=== PATIENT | male | born 1975 | race Hispanic/Latino ===

== ENCOUNTER 2017-03-07 18:10 | Emergency (ER) | payer SELFPAY ==
[2017-03-07 18:17] VITALS: RESP 18; TEMP 97.3; O2SAT 100
--- NOTE | 2017-03-07 19:21 | ED PDOC ---
HPI: Psych/Substance Abuse Time Seen by Provider: 03/07/17 18:28 Chief Complaint (Nursing): Alcohol Ingestion Chief Complaint (Provider): Alcohol Ingestion History Per: Patient History/Exam Limitations: no limitations Current Symptoms Are (Timing): Still Present Additional Complaint(s): 41 year old male presents to the emergency department via ambulance because the tour bus driver called the police after patient fell inside of the bus prior to arrival. Patient admits to going to a bar and drinking this afternoon but does not recall whether he drink excessively or moderate. No obvious injuries or head trauma noted. Denies any further medical complaints. Past Medical History Reviewed: Historical Data, Nursing Documentation, Vital Signs Vital Signs: Last Vital Signs Temp 97.3 F L 03/07/17 18:12 Pulse 78 03/07/17 18:12 Resp 18 03/07/17 18:12 BP 116/90 03/07/17 18:12 Pulse Ox 100 03/07/17 18:12 - Medical History PMH: No Chronic Diseases - Surgical History Surgical History: No Surg Hx - Family History Family History: States: Unknown Family Hx - Social History Current smoker - smoking cessation education provided: No Alcohol: Other (Few days a week) Drugs: Denies - Allergies Allergies/Adverse Reactions: Allergies Allergy/AdvReac Type Severity Reaction Status Date / Time No Known Allergies Allergy Verified 03/07/17 18:54 Review of Systems ROS Statement: Except As Marked, All Systems Reviewed And Found Negative (As per HPI, otherwise negative) Constitutional: Negative for: Other (No obvious injury or head trauma) Neurological: Positive for: Other (Fall due to alcohol intoxication) Physical Exam - Reviewed Nursing Documentation Reviewed: Yes Vital Signs Reviewed: Yes - Physical Exam Appears: Positive for: Non-toxic, No Acute Distress Head Exam: Positive for: ATRAUMATIC, NORMAL INSPECTION, NORMOCEPHALIC Skin: Positive for: Normal Color, Warm, Dry Neck: Positive for: Normal, Supple Cardiovascular/Chest: Positive for: Regular Rate, Rhythm. Negative for: Murmur Respiratory: Positive for: Normal Breath Sounds. Negative for: Decreased Breath Sounds, Accessory Muscle Use, Respiratory Distress Gastrointestinal/Abdominal: Positive for: Normal Exam, Soft. Negative for: Tenderness Extremity: Positive for: Normal ROM. Negative for: Pedal Edema Neurologic/Psych: Positive for: Alert (Sleepy but arousable), Oriented (x3) - Laboratory Results Result Diagrams: 12/29/17 19:49 03/07/17 20:09 - ECG O2 Sat by Pulse Oximetry: 100 (RA) Pulse Ox Interpretation: Normal Medical Decision Making Medical Decision Making: Time: 1910 Initial Impression: Alcohol Ingestion Initial Plan: --BMP --CBC w/ diff --Dextrose 125 mls/hr IV --Alcohol Serum --Reevaluation Time: 2008 --Alcohol, Quantitative: 293 (High) Scribe~Attestation: Documented by Tata Reyes, acting as a scribe for Charlene Ghotra MD. Provider Scribe~Attestation: All medical record entries made by the Scribe were at my direction and personally dictated by me. I have reviewed the chart and agree that the record accurately reflects my personal performance of the history, physical exam, medical decision making, and the department course for this patient. I have also personally directed, reviewed, and agree with the discharge instructions and disposition. Patient's is present and willing to take him home. He has been cooperative since arrival. Will d/c him to his 's care. Disposition - Clinical Impression Clinical Impression: Alcohol intoxication - Patient ED Disposition Is Patient to be Admitted: No Doctor Will See Patient In The: Office Counseled Patient/Family Regarding: Diagnosis, Need For Followup - Disposition Disposition: Routine/Home Disposition Time: 21:05 Condition: STABLE Instructions: Alcohol Intoxication (ED) Forms: [facility] (Italian) - POA Present On Arrival: Falls Or Trauma
[2017-03-07 19:59] LABS: BASO # 0.1 K/uL (0.0-0.2); BASO % 0.8 % (0.0-2.0); EOS % 0.7 % (0.0-4.0); LYMPH # 2.1 K/uL (1.0-4.3); LYMPH % 30.6 % (20.0-40.0); MEAN CELL VOLUME 86.2 fl (80.0-94.0); MEAN CORPUSCULAR HEMOGLOBIN 28.2 pg (27.0-31.0); MEAN CORPUSCULAR HGB CONC 32.7 g/dL (33.0-37.0); MEAN PLATELET VOLUME 9.6 fl (7.2-11.7); MONO # 0.4 K/uL (0.0-0.8); MONO % 6.5 % (0.0-10.0); NEUT # 4.2 K/uL (1.8-7.0); NEUT % 61.4 % (50.0-75.0); NRBC % 0.3 % (0.0-0.0); RBC 5.3 Mil/uL (4.40-5.90); RED CELL DISTRIBUTION WIDTH 13.2 % (11.5-14.5); WHITE BLOOD COUNT 6.8 K/uL (4.8-10.8)
[2017-03-07 20:43] LABS: BLOOD UREA NITROGEN 18 mg/dl (9-20); CALCIUM 8.4 mg/dL (8.4-10.2); GFR AFRICAN-AMERICAN > 60; GFR NON-AFRICAN AMERICAN > 60
[2017-03-07 21:21] VITALS: BP 140/75; PULSE 75
== END 2017-03-07 21:22 | disposition home or self-care (01) ==
LOC: H.ER 18:10
DX: F10.129 Alcohol abuse with intoxication, unspecified (principal)
CPT/HCPCS: 80048; 85025; 96360; 96361; 99284; G0480